=== PATIENT | male | born 1970 | race American Indian/Alaskan Native ===

== ENCOUNTER 2018-11-16 16:03 | Emergency (ER) | payer OTHER ==
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
[2018-11-16 16:22] VITALS: BP 138/100
[2018-11-16] MEDS ORDERED: NORCO 5/325 PO STA (19:58)
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
[2018-11-16] MEDS ORDERED: IBUPROFEN PO ONE (20:08)
== END 2018-11-16 20:38 | disposition home or self-care (01) ==
LOC: ED 16:03
DX: M54.5 Low back pain (principal); J45.909 Unspecified asthma, uncomplicated; Z91.013 Allergy to seafood
CPT/HCPCS: 99282